=== PATIENT | female | born 1985 | race Caucasian/White ===

== ENCOUNTER 2025-09-26 19:43 | Observation (INO) | payer OTHER, SELFPAY ==
[2025-09-26] VITALS (20 sets, daily range): BP systolic 141–152; BP diastolic 76–87; PULSE 83–109; RESP 18; TEMP 37.2; O2SAT 98–100
--- NOTE | 2025-09-26 19:43 | PC.NURSE ---
Pt arrives to unit with vaginal pressure and right flank pain.
--- NOTE | 2025-09-26 19:46 | PC.NURSE ---
Called Dr. Bazzi, update on pt arrival and difficulty in urination. Orders received to straight cath bladder.
--- OUTSIDE RECORDS SUMMARY | 2025-09-26 19:59 | XMS_ITS | Encounter Summary ---
Author Organization [facility] Address [address] [place] [address] Care Team Providers Care Field Contact Person Name Role Phone Jessica Avalos MD Primary Care Provider [phone] Encounter Details Date Type Department Care Team (Late st Contact Info) Description 09/26/2025 Patient Self-Triage [facility] [address] [place] [place] [id number] Social History Tobacco Use Types Packs/Day Years Used Date Smoking Tobacco: Never Smokeless Tobacco: Never Alcohol Use Standard Drinks/Week Comments No 0 (1 standard drink = 0.6 oz pur e alcohol) rarely Feeling Safe Answer Date Recorded Are you in a relationship wi th someone who hurts you emotionally and/or physically? No 10/25/2024 Estimated Date of Delivery Comme nts Yes 12/03/2025 Based on last me nstrual period of 02/26/2025 Sex and Gender Information Value Date Recorded Sex Assigned at Not on file Legal Sex Female 4:36 AM NEWS ASSISTANT Gender Identity Not on file Sexual Orientation Not on file documented as of this encounter Plan of Treatment Upcoming Encounters Date Type Department Care Team (Late st Contact Info) Description 10/08/2025 10:30 AM NEWS ASSISTANT Appointment [facility] [address] [place] [address] Abena Rae MD [address] [place] [address] 10/08/2025 2:00 PM NEWS ASSISTANT Ancillary Procedure [facility] [address] [place] [address] 10/08/2025 2:30 PM NEWS ASSISTANT visit [facility] [address] [place] [address] Samantha Del Real MD [address] [place] [address] 10/15/2025 2:00 PM NEWS ASSISTANT Ancillary Procedure [facility] [address] [place] [address] 10/22/2025 2:00 PM NEWS ASSISTANT Ancillary Procedure [facility] [address] [place] [address] 10/22/2025 2:30 PM NEWS ASSISTANT visit [facility] [address] [place] [address] Samantha Del Real MD [address] [place] [address] 10/29/2025 2:00 PM NEWS ASSISTANT Ancillary Procedure [facility] [address] [place] [address] 11/05/2025 2:00 PM NEWS ASSISTANT Ancillary Procedure [facility] [address] [place] [address] 11/05/2025 2:30 PM NEWS ASSISTANT visit [facility] [address] [place] [address] Samantha Del Real MD [address] [place] [address] 11/13/2025 11:15 AM NEWS ASSISTANT Hospital Encounter [facility] [address] [facility] [place] [phone] Samantha Del Real MD [address] [place] [address] 11/13/2025 11:15 AM NEWS ASSISTANT - 11/13/2025 1:16 PM NEWS ASSISTANT Surgery [facility] [address] [place] [address] Samantha Del Real MD [address] [place] [id number] SECTION Scheduled Procedures Name Priority Associated Diagnoses Date/Ti me SECTION rpt edc: 23 CHTN on meds 11/13/2025 11:15 AM NEWS ASSISTANT documented as of this encounter Goals Goal Patient Goal Type Associated Problems Recent Progress Patient-Stated? Author Autogenerat ed Goal Care Plan Autogenerated Problem No Flaco Jurado, RN documented as of this encounter Visit Diagnoses Not on filedocumented in this encounter Additional Health Concerns Active Problems Noted Date Diagnosed Date Autogenerated Problem 09/18/2025 documented as of this encounter Care Teams Field Contact Person Relationship Specialty [place] [address] [address] [facility] [address] [place] [address] PCP - General Family Practice 10/18/18 documented as of this encounter
--- OUTSIDE RECORDS SUMMARY | 2025-09-26 19:59 | XMS_ITS | Clinical Summary ---
Author Organization [facility] Address [address] [place] [address] Care Team Providers Care Suit Attendant Name Role Phone Jessica Avalos MD Primary Care Provider [phone] Allergies Active Allergy Reactions Criticality Noted Date Comments Labetalol Itching,Nausea and V omiting,Other (See Comments) Low 05/30/2025 [place] off Medications vit,calc76/iron /folic (PNV 29-1 ORAL) Take by mouth. Active aspirin (ECOTRIN EC) 81 mg Tablet, Delayed Release (E.C.) Take 81 mg by mouth daily. Active fluconazole (DIFLUCAN) 150 mg tablet Take 1 tab (150 mg) by mouth every 72 hours for 3 total doses 3 Tablet 5 Active NIFEdipine (PROCARDIA XL) 30 mg Extended Release 24 hour tablet Take 1 Tablet (30 mg) by mouth 2 times daily. 60 Tablet 4 5 Active NIFEdipine (PROCARDIA XL) 30 mg Extended Release 24 hour tablet Take 1 Tablet (30 mg) by mouth daily. 30 Tablet 4 5 09/18/20 25 Discontinu ed(Reorder ) Active Problems Problem Noted Date Diagnosed Date Chronic hypertension affecting 025 [facility] S/P dilatation and curettage 10/25/2024 S/P section; RPT for FP; Mariana 12/17; 0 12/17/2020 History of severe pre-eclampsia 08/11/2020 S/P primary low transverse 06/16/2019 Estimated Date of Delivery Comme nts Yes 12/03/2025 Based on last me nstrual period of 02/26/2025 Resolved Problems Problem Noted Date Diagnosed Date Resolved Date No-show for appointment 12/03/2022 11/0 07/2023 Overview (12/03/2022): Pt no-showed 2/3 after last minute rescheduling and no shows for prior 2 appts. Encounter for induction of labor 06/14/2019 06/16/2019 renal anomaly, single gestation 04/06/2019 12/17/2020 Encounters Date Type Department Care Team Description 09/26/2025 Patient Self-Triage [facility] [address] [place] [address] 09/17/2025 2:30 PM SQL SERVER DEVELOPER visit [facility] [address] [place] [address] Samantha Del Real MD Need for tetanus booster (Primary Dx) 09/12/2025 8:10 AM SQL SERVER DEVELOPER - 09/12/2025 11:59 PM SQL SERVER DEVELOPER Hospital Encounter [facility] Maternal and Ground Floor S [facility] [address] [place] [phone] Samantha Del Real MD Discharge Disposition: Home or Self Care 08/28/2025 Results Follow-Up [facility] [address] [place] [address] Samantha Del Real MD PROTEIN/CREATININE RATIO, URINE, US OB FOLLOW UP PER FETUS, GLUCOSE TOLERANCE 1 HR GESTATIONAL, Additional followed-up results: 3 08/27/2025 2:30 PM CDT visit [facility] [address] [place] [address] Samantha Del Real MD Chronic hypertension in (Primary Dx); Poor growth affecting management of mother in second trimester, single or unspecified fetus 08/27/2025 2:00 PM CDT Ancillary Procedure [facility] [address] [place] [address] Encounter for follow-up ultrasound of anatomy 08/21/2025 External Device Data STL ABSTRACTION Provider, Abstract 07/23/2025 2:00 PM CDT visit [facility] [address] [place] [address] Samantha Del Real MD Chronic hypertension affecting (Primary Dx) 07/23/2025 1:00 PM CDT Ancillary Procedure [facility] [address] [place] [address] Encounter for anatomic survey 07/23/2025 External Device Data STL ABSTRACTION Provider, Abstract 07/16/2025 External Device Data STL ABSTRACTION Provider, Abstract from Last 3 Months Immunizations Immunization Administration Dates Next Due (ADACEL/BOOSTRIX)(10 YR UP) TDAP VACCINE, 0.5ML, IM 09/17/2025,10/09/2020,04/12/2019 (SPIKEVAX) (12 YRS UP PRIMAR Y SERIES) COVID-19 VACCINE - MRNA-1273(PF) 100 MCG/0.5 ML IM SUSP 03/06/2021,02/06/2021 INFLUENZA VACCINE QUADRIVALE NT 6 MOS UP CELL DERIVED PF IM 12/04/2018 INFLUENZA VACCINE QUADRIVALE NT 6 MOS UP PF IM 10/13/2021,08/11/2020,08/14/2019 INFLUENZA VACCINE RECOMBINAN T TRIVALENT, (9 YR UP), 0.5ML (PF), IM 09/13/2024 Influenza Seasonal Unspecifi ed Formulation IM 11/18/2021 Family History Medical History Relation Name Comments Healthy Father Herman Lopez Heart Disease Father Herman Lopez Prostate Cancer Father Herman Lopez Healthy Mother Relation Name Status Comments Father Herman Lopez Alive Mother Alive Son Alive Social History Tobacco Use Types Packs/Day Years Used Date Smoking Tobacco: Never Smokeless Tobacco: Never Tobacco Cessation:Counseling Given: Not Answered Alcohol Use Standard Drinks/Week Comments No 0 [...] on file Legal Sex Female 4:36 AM SQL SERVER DEVELOPER Gender Identity Not on file Sexual Orientation Not on file Last Filed Vital Signs Vital Sign Reading Time Taken Comments Blood Pressure 142/76 09/17/2025 2:37 PM SQL SERVER DEVELOPER Pulse 110 09/17/2025 2:37 PM SQL SERVER DEVELOPER Temperature 37.1 C (98.7 F) 05/07/2025 9:19 AM CDT Respiratory Rate 16 10/25/2024 8:40 AM SQL SERVER DEVELOPER Oxygen Saturation 90% 06/25/2025 1:48 PM CDT Inhaled Oxygen Concentration - - Weight 86.2 kg (190 lb) 09/17/2025 2:37 PM SQL SERVER DEVELOPER Height 162.6 cm (5' 4) 09/17/2025 2:37 PM SQL SERVER DEVELOPER Body Mass Index 32.61 09/17/2025 2:37 PM SQL SERVER DEVELOPER Plan of Treatment Upcoming Encounters Date Type Department Care Team (Late st Contact Info) Description 10/08/2025 10:30 AM SQL SERVER DEVELOPER Appointment [facility] Maternal and Ground Floor [address] [place] [phone] Abena Rae MD [address] [place] [id number] [place] [address] 10/08/2025 2:00 PM SQL SERVER DEVELOPER Ancillary Procedure [facility] [address] [place] [address] 10/08/2025 2:30 PM SQL SERVER DEVELOPER visit [facility] [address] [place] [address] Samantha Del Real MD [address] [place] [address] 10/15/2025 2:00 PM SQL SERVER DEVELOPER Ancillary Procedure [facility] [address] [place] [address] [place] [address] 10/22/2025 2:00 PM SQL SERVER DEVELOPER Ancillary Procedure [facility] [address] [place] [address] [place] [address] 10/22/2025 2:30 PM SQL SERVER DEVELOPER visit [facility] [address] [place] [address] Samantha Del Real MD [address] [place] [address] 10/29/2025 2:00 PM SQL SERVER DEVELOPER Ancillary Procedure [facility] [address] [place] [address] [place] [address] 11/05/2025 2:00 PM SQL SERVER DEVELOPER Ancillary Procedure [facility] [address] [place] [address] [place] [address] 11/05/2025 2:30 PM SQL SERVER DEVELOPER visit [facility] [address] [place] [address] [place] [address] Samantha Del Real MD [address] [place] [address] 11/13/2025 11:15 AM SQL SERVER DEVELOPER Hospital Encounter [facility] Labor & [address] [place] [phone] Samantha Del Real MD [address] [place] [address] 11/13/2025 11:15 AM SQL SERVER DEVELOPER - 11/13/2025 1:16 PM SQL SERVER DEVELOPER Surgery [facility] Labor & [address] [place] [address] Samantha Del Real MD [address] [facility] [address] [place] [address] SECTION Scheduled Procedures Name Priority Associated Diagnoses Date/Ti me SECTION rpt edc: 23 CHTN on meds 11/13/2025 11:15 AM SQL SERVER DEVELOPER Health Maintenance Due Date Last Done Comments HEPATITIS B VACCINES (1 of 3 - 19+ 3-dose series) 2006 HPV VACCINES (1 - 3-dose SCD M series) 2014 Preventative Visit- Commercial 10/31/2024 1 11/13/2023, 09/08/2023, 06/26/2021 INFLUENZA VACCINE (#1) 2025 , 10/31/2022, 11/18/2021, Additional history exists COVID-19 Vaccine (4 - 2024-2 6 season) 2025 10/13/2021, 03/06/2021, 02/06/2021 RSV VACCINE (60+ or ) (1 - Risk 1-dose series) 10/08/2025 PAP SMEAR 09/08/2026 09/08/2023, 05/19/2020 CERVICAL CANCER SCREENING 09/08/2028 HPV/Cotest (21-29) 09/08/2028 09/08/2023, 05/19/2020 HPV/Cotest (30-65) 09/08/2028 09/08/2023, 05/19/2020 DTAP/TDAP/TD VACCINES (4 - T d or Tdap) 09/17/2035 09/17/2025, 10/09/2020, 04/12/2019 Goals Goal Patient Goal Type Associated Problems Recent Progress Patient-Stated? Author Autogenerat ed Goal Care Plan Autogenerated Problem No Flaco Jurado RN Procedures Procedure Name Priority Date/Time Associated Diagnosis Comments COMPREHENSIVE METABOLIC PANEL Routine 09/12/2025 10:32 AM SQL SERVER DEVELOPER Chronic hypertension in RPR Routine 09/12/2025 10:32 AM SQL SERVER DEVELOPER Chronic hypertension in CBC WITH DIFFERENTIAL Routine 09/12/2025 10:32 AM SQL SERVER DEVELOPER Chronic hypertension in GLUCOSE TOLERANCE 1 HR GESTATIONAL Routine 09/12/2025 10:32 AM SQL SERVER DEVELOPER Chronic hypertension in US OB FOLLOW UP PER FETUS Routine 09/12/2025 9:11 AM SQL SERVER DEVELOPER Chronic hypertension in Poor growth affecting management of mother in second trimester, single or unspecified fetus PROTEIN , RANDOM URINE Routine 08/27/2025 3:02 PM CDT Chronic hypertension in US OB FOLLOW UP PER FETUS Routine 08/27/2025 2:09 PM CDT Encounter for follow-up ultrasound of anatomy US OB 14+ WKS SINGLE GEST Routine 07/23/2025 1:28 PM CDT Encounter for anatomic survey CERV/VAG CYTO AGE BASED SCREEN PAP Routine 09/08/2023 3:38 PM SQL SERVER DEVELOPER Well woman exam with routine gynecological exam from Last 3 Months or Most Recently Relevant to Health Maintenance Results * GLUCOSE TOLERANCE 1 HR GESTATIONAL (09/12/2025 10:32 AM SQL SERVER DEVELOPER) GLUCOSE 1 HR OBSTETRIC 110 <135 mg/dL [facility] Comment: FASTING:NO FASTING: NO Test Performed at: [facility] [address] [place] [address] Pedro Portillo Blood 09/12/2025 10:3 2 AM SQL SERVER DEVELOPER 09/12/2025 10:34 AM SQL SERVER DEVELOPER Samantha Del Real MD CHEMISTRY ORDERABL ES Final Result [facility] [phone] [facility] [address] [place] [address] * (ABNORMAL) CBC WITH DIFFERENTIAL (09/12/2025 10:32 AM SQL SERVER DEVELOPER) WBC 11.6(H) 3.8 - 10.8 Thousand/ uL [facility] RBC 3.86 3.80 - 5.10 Million/u L [facility] HEMOGLOBIN 10.4(L) 11.7 - 15.5 g/dL [facility] HEMATOCRIT 32.7(L) 35.0 - 45.0 % [facility] MCV 84.7 80.0 - 100.0 fL [facility] MCH 26.9(L) 27.0 - 33.0 pg [facility] MCHC 31.8(L) 32.0 - 36.0 g/dL [facility] Comment: For adults, a slight decrease in the calculated MCHC value (in the range of 30 to 32 g/dL) is most likely not clinically significant; however, it should be interpreted with caution in correlation with other red cell parameters and the patient's clinical condition. RDW 13.7 11.0 - 15.0 % [facility] PLATELETS 343 140 - 400 Thousand/ uL [facility] MPV 10.2 7.5 - 12.5 fL [facility] NEUTROPHIL ABSOLUTE 9,094(H) 1,500 - 7,800 cells/uL [facility] LYMPHOCYTE ABSOLUTE 1,775 850 - 3,900 cells/uL [facility] MONOCYTE ABSOLUTE 661 200 - 950 cells/uL [facility] EOSINOPHIL ABSOLUTE 46 15 - 500 cells/uL [facility] BASOPHILS ABSOLUTE 23 0 - 200 cells/uL [facility] NEUTROPHIL 78.4 % [facility] LYMPHOCYTES 15.3 % [facility] MONOCYTE 5.7 % [facility] EOSINOPHILS 0.4 % [facility] BASOPHILS 0.2 % [facility] Comment: FASTING:NO FASTING: NO Test Performed at: [facility] [address] [place] [address] Pedro Portillo Blood 09/12/2025 10:3 2 AM SQL SERVER DEVELOPER 09/12/2025 10:34 AM SQL SERVER DEVELOPER Samantha Del Real MD HEMATOLOGY ORDERAB LES Final Result [facility] [phone] [facility] [address] [place] [address] * RPR (09/12/2025 10:32 AM SQL SERVER DEVELOPER) RPR NON-REACTI VE NON-REACTI VE [facility] Comment: No laboratory evidence of syphilis. If recent exposure is suspected, submit a new sample in 2-4 weeks. FASTING:NO FASTING: NO Test Performed at: [facility] [address] Pedro Sanchez MD Blood 09/12/2025 10:3 2 AM SQL SERVER DEVELOPER 09/12/2025 10:34 AM SQL SERVER DEVELOPER Samantha Del Real MD CHEMISTRY ORDERABL ES Final Result Performing Organization Address City/[facility]/ZIP Co nv Phone Number [facility] [phone] [address] * (ABNORMAL) COMPREHENSIVE METABOLIC PANEL (09/12/2025 10:32 AM SQL SERVER DEVELOPER) Pathologist [facility] GLUCOSE 115 65 - 139 mg/dL [facility] Comment: Non-fasting reference interval BUN 10 7 - 25 mg/dL [facility] CREATININE 0.55 0.50 - 0.97 mg/dL [facility] GFR 120 > OR = 60 mL/min/1. 73m2 [facility] BUN/CREAT RATIO SEE NOTE: (calc) [facility] Comment: Not Reported: BUN and Creatinine are within reference range. SODIUM 139 135 - 146 mmol/L [facility] POTASSIUM 4.3 3.5 - 5.3 mmol/L [facility] CHLORIDE 105 98 - 110 mmol/L [facility] CO2 26 20 - 32 mmol/L [facility] CALCIUM 9.0 8.6 - 10.2 mg/dL [email or web address] [place] TOTAL PROTEIN 6.2 6.1 - 8.1 g/dL [email or web address] ALBUMIN 3.3(L) 3.6 - 5.1 g/dL [facility] [place] GLOBULIN 2.9 1.9 - 3.7 g/dL (calc) [facility] ALBUMIN/GLOBULIN RATIO 1.1 1.0 - 2.5 (calc) [facility] BILIRUBIN TOTAL 0.3 0.2 - 1.2 mg/dL [facility] ALKALINE PHOSPHATASE 100 31 - 125 U/L [facility] AST 14 10 - 30 U/L [facility] ALT 12 6 - 29 U/L [facility] Comment: FASTING:NO FASTING: NO Test Performed at: [facility] [place] [address] [place] [address] [facility] Vo Blood 09/12/2025 10:3 2 AM SQL SERVER DEVELOPER 09/12/2025 10:34 AM SQL SERVER DEVELOPER us Samantha Del Real MD CHEMISTRY ORDERABL ES Final Result [facility] [phone] [facility] [address] [place] [address] * US OB FOLLOW UP PER FETUS (09/12/2025 9:11 AM SQL SERVER DEVELOPER) Only the most recent of2 resultswithin the time period is included. Anatomical Region Laterality Modality Pelvis Ultrasound 09/12/2025 9:42 AM SQL SERVER DEVELOPER Narrative 09/12/2025 9:16 AM SQL SERVER DEVELOPER STL FOLLOW UP ----- Pat. Name: JERSEY FINE Study Date: 09/12/2025 9:42am Pat. NO: [id number] Referring MD: SAMANTHA DEL REAL MD Site: [facility] Band Cutter: Karan Almendarez RDMS : 1985 Age: 40 ----- INDICATION ----- History of Preeclampsia Previous Screening Follow-Up Advanced Maternal Age (AMA), Multigravida CODING ----- Diagnoses Z3A.28: Weeks of gestation O09.523: Supervision of elderly multigravida Z36.2: Encounter for other screening follow-up Procedures 25914: Ultrasound, uterus, real time with image documentation, follow up, transabdominal approach per fetus HISTORY ----- OB History 6. Para 2 T2L2 MATERNAL ASSESSMENT ----- Physical Exam Weight 93 kg. Initial weight 72 kg, 159 lb. BMI 36.14 kg/m . Initial BMI 28.17 kg/m . Weight gain 20 kg, 45 lb METHOD ----- Transabdominal ultrasound examination ----- Dietrich . Number of fetuses: 1 DATING ----- LMP on: 02/26/2025 GA by LMP 28 w + 2 d RENALDO by LMP: 12/03/2025 Ultrasound examination on: 09/12/2025 GA by U/S based upon: AC, BPD, EFW, Femur, HC GA by U/S 27 w + 3 d RENALDO by U/S: 12/09/2025 Method of dating: Restore dating from previous exam Assigned: based on the LMP, selected on 07/23/2025 Assigned GA 28 w + 2 d Assigned RENALDO: 12/03/2025 BIOMETRY ----- BPD 68.0 mm 27w 3d 13% Hadlock OFD 89.5 mm 28w 6d 65% Guillermo HC 251.8 mm 27w 2d 4% Hadlock AC 241.8 mm 28w 3d 48% Hadlock Femur 49.2 mm 26w 4d 4% Hadlock HC / AC 1.04 19% Nicolaides Weight Calculation: EFW 1,104 g 27w 2d 18% Hadlock EFW (lb,oz) 2 lb 7 oz EFW by Hadlock ([id number]) Extremities / Bony Struc Biometry: FL / BPD 0.72 FL / HC 0.20 FL / AC 0.20 GENERAL EVALUATION ----- Cardiac activity present. FHR 149 bpm. movements: present. Presentation: cephalic Placenta: Placental site: anterior Umbilical cord: Cord vessels: 3 vessel cord. Amniotic fluid: Amount of AF: normal amount. MVP 5.7 cm. FRANK 19.2 cm. Q1 5.6 cm, Q2 5.7 cm, Q3 4.4 cm, Q4 3.5 cm ANATOMY ----- The following structures appear normal: Head / Neck Cranium. Lateral ventricles. Choroid plexus. Midline falx. Cavum septi pellucidi. Heart / Thorax 4-chamber view. Diaphragm. Abdomen Stomach. Kidneys. Bladder. GROWTH OVERVIEW ----- Exam date GA BPD (mm) HC (mm) AC (mm) FL (mm) HL (mm) EFW (g) 07/23/2025 21w 0d 47.1 20% 176.0 9% 151.9 25% 34.4 35% 360 23% 08/27/2025 26w 0d 61.7 13% 230.8 6% 200.4 9% 44.9 9% 735 7% 09/12/2025 28w 2d 68.0 13% 251.8 4% 241.8 48% 49.2 4% 1,104 18% COMMENT ----- Patient's name and date of were verified by the academic affairs director prior to the exam IMPRESSION ----- Impression: - Dietrich viable intrauterine at 28w 2d in cephalic presentation. - Estimated weight is 1104 g (18%ile) with abdominal circumference at the 48%ile - Amniotic fluid volume is normal (Amniotic fluid index = 19.2 cm, maximum vertical pocket = 5.7 cm) - =No major malformations identified within the limitations of ultrasound I discussed with Jersey today that her baby's growth is normal. We will continue to monitor growth by US throughout the with Dopplers as indicated. Recommendations: - Follow up ultrasound for growth in 4 weeks Thank you for inviting us to participate in your patient's care. Procedure Note Abena Rae MD - 09/12/2025 STL FOLLOW UP ----- Pat. Name:Milagros FINE Date:09/12/2025 9:42am Pat. NO: [id number] MD:SAMANTHA DEL REAL MD [facility]Karan Almendarez RDMS :1985Age:40 ----- INDICATION ----- History of Preeclampsia Previous Screening Follow-Up Advanced Maternal Age (AMA), Multigravida CODING ----- Diagnoses Z3A.28: Weeks of gestation O09.523: Supervision of elderly multigravida Z36.2: Encounter for other screeningfollow-up Procedures 21095: Ultrasound, uterus, real time withimage documentation, follow up, transabdominal approach per fetus HISTORY ----- OB History 6. Para 2 T2L2 MATERNAL ASSESSMENT ----- Physical Exam Weight 93 kg. Initial weight 72 kg, 159 lb. BMI36.14 kg/m . Initial BMI 28.17 kg/m . Weight gain 20 kg, 45 lb METHOD ----- Transabdominal ultrasound examination ----- Dietrich . Number of fetuses: 1 DATING ----- LMP on:02/26/2025 GA by LMP28 w + 2 d RENALDO by LMP:12/03/2025 Ultrasound examination on:09/12/2025 GA by U/S based upon:AC, BPD, EFW, Femur, HC GA by U/S27 w + 3 d RENALDO by U/S:12/09/2025 Method of dating:Restore dating from previous exam Assigned:based on the LMP, selected on 07/23/2025 Assigned GA28 w + 2 d Assigned RENALDO:12/03/2025 BIOMETRY ----- BPD 68.0 mm 27w 3d 13%Hadlock OFD 89.5 mm 28w 6d 65%Guillermo HC 251.8 mm 27w 2d 4%Hadlock AC 241.8 mm 28w 3d 48%Hadlock Femur 49.2 mm 26w 4d 4%Hadlock HC / AC 1.04 19%Nicolaides Weight Calculation: EFW 1,104 g 27w 2d18% Hadlock EFW (lb,oz) 2 lb 7 oz EFW by Hadlock ([id number]) Extremities / Bony Struc Biometry: FL / BPD 0.72 FL / HC 0.20 FL / AC 0.20 GENERAL EVALUATION ----- Cardiac activity present. FHR 149 bpm. movements: present.Presentation: cephalic Placenta: Placental site: anterior Umbilical cord: Cord vessels: 3 vessel cord. Amniotic fluid: Amount of AF: normal amount. MVP 5.7 cm. FRANK 19.2 cm. Q15.6 cm, Q2 5.7 cm, Q3 4.4 cm, Q4 3.5 cm ANATOMY ----- The following structures appear normal: Head / Neck Cranium. Lateral ventricles. Choroid plexus.Midline falx. Cavum septi pellucidi. Heart / Thorax 4-chamber view. Diaphragm. Abdomen Stomach. Kidneys. Bladder. GROWTH OVERVIEW ----- Exam date GA BPD (mm) HC (mm) AC (mm) FL(mm) HL (mm) EFW (g) 07/23/2025 21w 0d 47.1 20% 176.0 9% 151.9 25%34.4 35% 360 23% 08/27/2025 26w 0d 61.7 13% 230.8 6% 200.4 9%44.9 9% 735 7% 09/12/2025 28w 2d 68.0 13% 251.8 4% 241.8 48%49.2 4% 1,104 18% COMMENT ----- Patient's name and date of were verified by the academic affairs director prior tothe exam IMPRESSION ----- Impression: - Dietrich viable intrauterine at 28w 2d in cephalicpresentation. - Estimated weight is 1104 g (18%ile) with abdominal circumferenceat the 48%ile - Amniotic fluid volume is normal (Amniotic fluid index = 19.2 cm, maximumvertical pocket = 5.7 cm) - =No major malformations identified within the limitations ofultrasound I discussed with Jersey today that her baby's growth is normal. We willcontinue to monitor growth by US throughout the with Dopplers as indicated. Recommendations: - Follow up ultrasound for growth in 4 weeks Thank you for inviting us to participate in your patient's care. us Samantha Del Real MD US ORDERABLES Fi nal Result * PROTEIN/CREATININE RATIO, URINE (08/27/2025 3:02 PM CDT) CREATININE, URINE 90 20 - 275 mg/dL [facility] PROTEIN/CREATININE RATIO, URINE 178 24 - 184 mg/g creat [facility] PROTEIN/CREATININE RATIO, URINE 0.178 0.024 - 0.184 mg/mg creat [facility] PROTEIN TOTAL, URINE 16 5 - 24 mg/dL [facility] Comment: Test Performed at: [place] [address] [place] [address] [facility]Fa[facility] Portillo Vo Urine URINE SPECIMEN OBTAINED BY CLEAN CATCH PROCEDURE / Unknown 08/27/2025 3:02 PM CDT 08/27/2025 11:58 PM CDT us Samantha Del Real MD URINE ORDERABLES F inal Result [facility] [phone] [place] [address] [place] [address] * US OB 14+ WKS SINGLE GEST (07/23/2025 1:28 PM CDT) Anatomical Region Laterality Modality Pelvis Ultrasound 07/23/2025 12:5 2 PM CDT Narrative 07/23/2025 1:36 PM CDT [facility] ANATOMY SURVEY ----- Pat. Name: JERSEY FINE Study Date: 07/23/2025 12:52pm Pat. NO: [id number] Referring MD: SAMANTHA DEL REAL MD Site: [facility] Band Cutter: Sangeetha Mccarthy RDMS : 1985 Age: 40 ----- INDICATION ----- Anatomy Survey CODING ----- Diagnoses Z3A.21: Weeks of gestation Z36.3: Encounter for screening for malformations Procedures 63036: Ultrasound, uterus, real time with image documentation, and maternal evaluation, after first trimester (> or = 14 weeks 0 days), transabdominal approach; single or first gestation HISTORY ----- OB History 6. Para 2 T2L2 MATERNAL ASSESSMENT ----- Physical Exam Initial weight 72 kg, 159 lb. Initial BMI 28.17 kg/m METHOD ----- Transabdominal ultrasound examination ----- Dietrich . Number of fetuses: 1 DATING ----- Method of dating: based on the LMP LMP on: 02/26/2025 GA by LMP 21 w + 0 d RENALDO by LMP: 12/03/2025 Ultrasound examination on: 07/23/2025 GA by U/S based upon: AC, BPD, EFW, Femur, HC GA by U/S 20 w + 3 d RENALDO by U/S: 12/07/2025 Assigned: based on the LMP, selected on 07/23/2025 Assigned GA 21 w + 0 d Assigned RENALDO: 12/03/2025 GENERAL EVALUATION ----- Cardiac activity present. FHR 151 bpm. Presentation: cephalic Placenta: anterior Umbilical cord: Cord vessels: 3 vessel cord. Insertion site: normal insertion Amniotic fluid: Amount of AF: normal amount. MVP 4.3 cm BIOMETRY ----- BPD 47.1 mm 20w 2d 20% Hadlock OFD 62.0 mm 21w 2d 59% Guillermo HC 176.0 mm 20w 1d 9% Hadlock Cerebellum tr 22.5 mm 21w 6d 63% Duran Nuchal fold 4.2 mm AC 151.9 mm 20w 3d 25% Hadlock Femur 34.4 mm 20w 6d 35% Hadlock HC / AC 1.16 46% [facility] Weight Calculation: EFW 360 g 20w 3d 23% Hadlock EFW (lb,oz) 0 lb 13 oz EFW by Hadlock ([id number]) Head / Face / Neck Biometry: Cephalic index 0.76 22% [facility] Medical Csr 7.1 mm CM 5.1 mm 45% Nicolaides Extremities / Bony Struc Biometry: FL / BPD 0.73 57% Hadlock FL / HC 0.20 79% Hadlock FL / AC 0.23 61% Hadlock ANATOMY ----- The following structures appear normal: Head / Neck Cranium. Lateral ventricles. Choroid plexus. Midline falx. Cavum septi pellucidi. Cerebellum. Cisterna magna. Nuchal fold. Face Lips. Profile. Nose. Heart / Thorax 4-chamber view. LVOT view. 3-vessel view. Situs. Cardiac rhythm. Diaphragm. Abdomen Cord insertion. Stomach. Kidneys. Bladder. Genitals. Spine Cervical spine. Thoracic spine. Lumbar spine. Sacral spine. Extremities / Arms. Right hand. Left hand. Legs. Right foot. Left foot. Skeleton The following structures could not be adequately visualized: Heart / Thorax RVOT view. 4-jdagju-bhsjnkg view. MATERNAL STRUCTURES ----- Cervix Visualized Approach - Transabdominal: Cervical length 39.0 mm Right Ovary Size 22 mm x 25 mm x 19 mm. Vol 5.5 cm Left Ovary Size 27 mm x 23 mm x 17 mm. Vol 5.7 cm IMPRESSION ----- [place] is here for ultrasound for a anatomic survey. 1. Single living fetus with a gestational age of 21w 0d based on previously established due date. 2. Current growth parameters are consistent with the established due date. The fetus is appropriate in size, with an EFW of 360 g (23%). 3. Basic anatomic survey is unremarkable. No gross structural abnormalities noted. No sonographic markers for aneuploidy noted. - Suboptimal/incomplete views of: RVOT, 3VTV. 4. Amniotic fluid volume is normal for gestational age (4.3 cm). 5. The cervical length is within normal range for gestational age, with an estimated cervical length of 39 mm, measured transabdominally. 6. The adnexa appear unremarkable in appearance. 7. Placenta is anterior. No previa/not low-lying. The placenta cord insertion is normal. Recommendations: - Recommend interval US in 2-4 weeks to complete the anatomic survey. Recommend [facility] US for persistent suboptimal visualization on follow-up. - Recommend interval third trimester growth and anatomy at 32 weeks. Thank you for allowing us to participate in the care of this patient. Procedure Note Vicky Fan MD - 07/23/2025 [facility] ANATOMY SURVEY ----- Pat. Name:Milagros FINE Date:07/23/2025 12:52pm Pat. NO: [id number] MD:SAMANTHA DEL REAL [facility]Sangeetha Mccarthy RDMS :[id number]:40 ----- INDICATION ----- Anatomy Survey CODING ----- Diagnoses Z3A.21: Weeks of gestation Z36.3: Encounter for screening formalformations Procedures 46050: Ultrasound, uterus, real time withimage documentation, and maternal evaluation, after first trimester (> or = 14 weeks 0 days),transabdominal approach; single or first gestation HISTORY ----- OB History 6. Para 2 T2L2 MATERNAL ASSESSMENT ----- Physical Exam Initial weight 72 kg, 159 lb. Initial BMI 28.17kg/m METHOD ----- Transabdominal ultrasound examination ----- Dietrich . Number of fetuses: 1 DATING ----- Method of dating:based on the LMP LMP on:02/26/2025 GA by LMP21 w + 0 d RENALDO by LMP:12/03/2025 Ultrasound examination on:07/23/2025 GA by U/S based upon:AC, BPD, EFW, Femur, HC GA by U/S20 w + 3 d RENALDO by U/S:12/07/2025 Assigned:based on the LMP, selected on 07/23/2025 Assigned GA21 w + 0 d Assigned RENALDO:12/03/2025 GENERAL EVALUATION ----- Cardiac activity present. FHR 151 bpm. Presentation: cephalic Placenta: anterior Umbilical cord: Cord vessels: 3 vessel cord. Insertion site: normalinsertion Amniotic fluid: Amount of AF: normal amount. MVP 4.3 cm BIOMETRY ----- BPD 47.1 mm 20w 2d20% Hadlock OFD 62.0 mm 21w 2d59% Guillermo HC 176.0 mm 20w 1d9% Hadlock Cerebellum tr 22.5 mm 21w 6d63% Duran Nuchal fold 4.2 mm AC 151.9 mm 20w 3d25% Hadlock Femur 34.4 mm 20w 6d35% Hadlock HC / AC 1.16 46%Nicolaides Weight Calculation: EFW 360 g 20w 3d 23%Hadlock EFW (lb,oz) 0 lb 13 oz EFW by Hadlock ([id number]) Head / Face / Neck Biometry: Cephalic index 0.76 22%[facility] Medical Csr 7.1 mm CM 5.1 mm 45%Nicolaides Extremities / Bony Struc Biometry: FL / BPD 0.73 57%Hadlock FL / HC 0.20 79%Hadlock FL / AC 0.23 61%Hadlock ANATOMY ----- The following structures appear normal: Head / Neck Cranium. Lateral ventricles. Choroid plexus.Midline falx. Cavum septi pellucidi. Cerebellum. Cisterna magna. Nuchal fold. Face Lips. Profile. Nose. Heart / Thorax 4-chamber view. LVOT view. 3-vessel view. Situs.Cardiac rhythm. Diaphragm. Abdomen Cord insertion. Stomach. Kidneys. Bladder.Genitals. Spine Cervical spine. Thoracic spine. Lumbar spine.Sacral spine. Extremities / Arms. Right hand. Left hand. Legs. Right foot.Left foot. Skeleton The following structures could not be adequately visualized: Heart / Thorax RVOT view. 3-lykbqn-cokeztk view. MATERNAL STRUCTURES ----- Cervix Visualized Approach - Transabdominal: Cervical length 39.0mm Right Ovary Size 22 mm x 25 mm x 19 mm. Vol 5.5 cm Left Ovary Size 27 mm x 23 mm x 17 mm. Vol 5.7 cm IMPRESSION ----- [place] is here for ultrasound for a anatomic survey. 1. Single living fetus with a gestational age of 21w 0d based onpreviously established due date. 2. Current growth parameters are consistent with the established due date.The fetus is appropriate in size, with an EFW of 360 g (23%). 3. Basic anatomic survey is unremarkable. No gross structuralabnormalities noted. No sonographic markers for aneuploidy noted. - Suboptimal/incomplete views of: RVOT, 3VTV. 4. Amniotic fluid volume is normal for gestational age (4.3 cm). 5. The cervical length is within normal range for gestational age, with anestimated cervical length of 39 mm, measured transabdominally. 6. The adnexa appear unremarkable in appearance. 7. Placenta is anterior. No previa/not low-lying. The placenta cordinsertion is normal. Recommendations: - Recommend interval US in 2-4 weeks to complete the anatomic survey.Recommend [facility] US for persistent suboptimal visualization on follow-up. - Recommend interval third trimester growth and anatomy at 32weeks. Thank you for allowing us to participate in the care of this patient. Samantha Del Real MD US ORDERABLES Fi nal Result * CERV/VAG CYTO AGE BASED SCREEN PAP (09/08/2023 3:38 PM SQL SERVER DEVELOPER) COMMENT (PAP): [facility] [place] Comment: This order for age-based cervical cancer and STI screening follows ACOG guidelines(PB 168, 140, VCE784). See individual assays for performing site location. CLINICAL INFORMATION [facility] [place] Comment:None given LAST MENSTRUAL PERIOD [facility] [place] Comment:NONE GIVEN PREV PAP: [facility] [place] Comment:NONE GIVEN PREV BX: [facility] [place] Comment:NONE GIVEN SOURCE [facility] [place] Comment:Endocervix ADEQUACY: [facility] [place] Comment: Satisfactory for evaluation. Endocervical/transformation zone component present. Age and/or menstrual status not provided PAP INTERP [facility] [place] Comment: Cytology Results: Negative for intraepithelial lesion or malignancy. COMMENT (PAP TEST) [facility] [place] Comment: This Pap test has been evaluated with computer assisted technology. IT DIRECTOR: Daniela Kapoor Comment: MEF, CT(ASCP) CT screening location: [place] [address] [address] [address] EXPLANATORY NOTE Que meevlBrandon Kapoor Comment: EXPLANATORY NOTE: The Pap is a screening test for cervical cancer. It is not a diagnostic test and is subject to false negative and false positive results. It is most reliable when a satisfactory sample, regularly obtained, is submitted with relevant clinical findings and history, and when the Pap result is evaluated along with historic and current clinical information. HPV E6/E7 Not Detected Not Detected Social Solutions[facility]andon Kapoor Comment: Methodology: Material Handler Floorperson-Mediated Amplification This assay detects E6/E7 viral messenger RNA (mRNA) from 14 high-risk HPV types (16,18,31,33,35,39,45,51,52,56,58,59,66,68). Cervical sources are required for HPV testing. If a vaginal source from a patient who has had a total hysterectomy with removal of cervix was submitted, please contact the testing laboratory for alternative testing options. For additional information, please refer to http://education.Metaresolver/faq/FBG066v7 (This link if provided for information/ educational purposes only.) Test Performed at: [facility] [address] [address] Pedro MCGILL Genital SWAB OF ENDOCERVIX / Unknown 09/08/2023 3:38 PM SQL SERVER DEVELOPER 09/09/2023 12:54 AM SQL SERVER DEVELOPER Samantha Del Real MD PATHOLOGY/CYTOLOGY ORDERABLES Final Result [facility] [phone] [place] [address] [address] [address] from Last 3 Months or Most Recently Relevant to Health Maintenance Additional Health Concerns Active Problems Noted Date Diagnosed Date Autogenerated Problem 09/18/[address] [facility] CHOICE [id number] [place] [address] [id number] [facility] CORE [id number] [place] [id number] RX [employer] RX Member Subscriber Plan / Payer (Ef fective for All Dates) Name:Jersey Fine Relation to Subscriber:Self Name:Jersey Fine Subscriber ID:Not on file Payer ID:Not on file Type:RX Commercial Address: [address] Advance Directives For more information, please contact: [phone] * Full Code (Latest Code Status on File) Date Activated Date Inactivated Comments 10/25/2024 5:58 AM 10/25/2024 11:17 AM * Full Code Date Activated Date Inactivated Comments 10/25/2024 5:58 AM 10/25/2024 5:58 AM * Full Code Date Activated Date Inactivated Comments 02/10/2022 2:48 PM 02/10/2022 6:11 PM * Full Code Date Activated Date Inactivated Comments 02/10/2022 12:26 PM 02/10/2022 2:48 PM * Full Code Date Activated Date Inactivated Comments 12/21/2020 11:05 PM 12/24/2020 1:50 PM Care Teams Suit Attendant Relationship Specialty [place] [address] [address] PCP - General Family Practice 10/18/18
--- NOTE | 2025-09-26 20:18 | OBADM ---
This patient, Kelli Cardenas, admitted to the OB room OB Post 117 for observation. Patient/family oriented to hospital policies and general routines including ID bracelet, bed and alarms, visiting hours, pain management, procedures, bathroom and other care routines, personal items, smoking policy, room service/diet, and visiting hours. Patient/Family are encouraged to report perceived risks to care and to ask questions if they do not understand what they are told or what they should do.
[2025-09-26 20:43] LABS: Add Urine Microscopic? YES; Appearance Urine Cloudy (Clear); Glucose Urine UA Negative (Negative); Leukocyte Esterase Ur 1+ LEU/UL (Negative); Need Manual Microscopic Reviewed; Nitrate Urine Negative (Negative); Non Pathogenic Casts 0-2; Specific Grav Ur 1.008 (1.001-1.035)
--- NOTE | 2025-09-26 21:02 | PC.NURSE ---
Called Dr. Bazzi, update on pt, adequate urination vaginal pressure, right flank pain 7 out of 10 not tender to touch, tracing, labs, and blood pressure. Orders received to administer rocephin 2 g, procardia 30 mg XL, prescription for keflex 500 mg four times a day for seven days, and discharge after rocephin with instructions to keep next scheduled appointment and when to return to the unit.
[2025-09-26] MEDS: cefTRIAXone 2 GM in SODIUM CHLORIDE 0.9% IV 100 ML 200 ML IVPB (22:18)
--- NOTE | 2025-09-26 22:53 | PC.NURSE ---
Pt discharged with prescription for keflex 500 mg four times a day for seven days, instructions to keep next scheduled appointment, and when to return to the unit, pt verbalizes understanding.
--- NOTE | 2025-10-01 13:18 | P.PNOB_ITS ---
OB - Triage/Final Diagnosis Visit Information Comments/Additional reasons for admission: I have assessed the risk for this patient, Kelli Cardenas, and determined that she would benefit from observation care. Evaluation Laboratory results: Laboratory Tests 09/26/25 20:27 Urine Color Yellow Urine Appearance Cloudy H Urine pH 6.5 Ur Specific [place] 1.008 Urine Protein Negative Urine Glucose (UA) Negative Urine Ketones Negative Ur Blood (Man) 3+ H Urine Nitrate Negative Urine Bilirubin Negative Urine Urobilinogen 0.2 Add Ur Microanalysis Reviewed Leukocyte Esterase Rfl 1+ H Urine RBC 11-20 H Urine WBC 0-5 Ur Squamous Epith Cells Occasional Urine Bacteria Rare Urine Casts 0-2 Final Diagnosis (1) Back pain affecting : Code(s): O99.891 - Other specified diseases and conditions complicating ; M54.9 - Dorsalgia, unspecified Status: Acute
== END 2025-09-26 22:53 | disposition home or self-care (01) ==
PROVIDERS: Admitting Provider Obstetrics & Gynecology; Visit Provider Obstetrics & Gynecology
DX: O26.893 Other specified pregnancy related conditions, third trimester (principal); Z3A.30 30 weeks gestation of pregnancy; M54.9 Dorsalgia, unspecified
CPT/HCPCS: 81001; 87086; 96365; A9270; G0378; G0379; J0696